=== PATIENT | male | born 1995 | race Caucasian/White ===

== ENCOUNTER 2023-08-14 11:51 | Inpatient (IN) | payer MEDICAID ==
[~2023-08-14] VITALS: Ht 177.8 cm; Wt 82.7 kg
[2023-08-14 12:10] VITALS: BP_SYST 146; PULSE 105; RESP 20; TEMP 98.3; O2SAT 98
[2023-08-14 12:53] LABS: BASOPHILS % (AUTO) 0.4 % (0.0-2.0); EOSINOPHILS # (AUTO) 0.2 K/uL (0.0-0.4); EOSINOPHILS % (AUTO) 2.3 % (0.0-4.0); HEMATOCRIT 42.4 % (36-54); HEMOGLOBIN 13.6 g/dL (14.0-18.0); MEAN CORPUSCULAR HEMOGLOBIN 28 pg (27-31); MEAN CORPUSCULAR HGB CONC 32 % (32-36); MEAN CORPUSCULAR VOLUME 88 fL (79.0-98.0); MONOCYTES # (AUTO) 0.4 K/uL (0.0-1.0); MONOCYTES % (AUTO) 5.3 % (1.7-9.3); NEUTROPHILS # (AUTO) 4.7 K/uL (1.8-7.7); PLATELET COUNT (AUTO) 279 K/uL (130-430); RED BLOOD CELL COUNT(AUTO) 4.81 MIL/uL (4.2-6.2); WHITE BLOOD COUNT (AUTO) 7.2 K/uL (4.8-10.8)
[2023-08-14 13:43] LABS: CALCIUM 9.3 mg/dL (8.4-11.0); CREATININE 1.07 mg/dL (0.55-1.30); POTASSIUM 3.5 mmol/L (3.5-5.1)
[2023-08-14] MEDS ORDERED: NALOXONE HCL 0.4 MG/ML AMP (NARCAN) IVP ONE (14:30)
[2023-08-14] MEDS ORDERED: ALBUTEROL SULFATE 0.083% 2.5 MG/3 ML VIAL.NEB INH PRN (17:15)
[2023-08-14] MEDS ORDERED: LORazepam 2 MG/ML VIAL IVP PRN (17:15)
[2023-08-14] MEDS ORDERED: IPRATROPIUM BROM 0.5 MG/2.5 ML VIAL.NEB (ATROVENT) INH PRN (17:15)
[2023-08-14] MEDS ORDERED: ACETAMINOPHEN 325 MG TABLET PO PRN ×2 (17:15→17:30)
[2023-08-14] MEDS ORDERED: ONDANSETRON HCL 4 MG/2 ML VIAL IVP PRN (17:15)
[2023-08-14 17:25] VITALS: PULSE 78; O2SAT 100
[2023-08-14 17:31] LABS: BARBITURATE, URINE NEGATIVE (NEG <=200); BENZODIAZEPINE, URINE NEGATIVE (NEG <=150); CANNABINOID, URINE POSITIVE (NEG <=50); COCAINE, URINE NEGATIVE (NEG <=150); METHAMPHETAMINES SCREEN,URINE POSITIVE (NEG <=500); OPIATE, URINE NEGATIVE (NEG <=100); PHENCYCLIDINE SCREEN,URINE NEGATIVE (NEG <=25); URINE AMPHETAMINE POSITIVE (NEG <=500); URINE METHADONE NEGATIVE (NEG <=200); URINE OXYCODONE SCREEN NEGATIVE (NEG <=100); URINE PROPOXYPHENE SCREEN NEGATIVE (NEG <=300)
[2023-08-14 17:32] LABS: UR TRICYCLIC ANTIDEPRESSANTS NEGATIVE (NEG <=300)
[2023-08-14] MEDS ORDERED: NORMAL SALINE 5 ML DISP.SYRIN IVF SCH (22:00)
[2023-08-14 23:34] VITALS: BP_SYST 122; PULSE 90; RESP 14; TEMP 98.1
[2023-08-14 23:45] VITALS: O2SAT 98
[2023-08-15 02:00] VITALS: BP_SYST 107; PULSE 74; RESP 16; TEMP 98.4; O2SAT 100
[2023-08-15 05:48] LABS: BASOPHILS % (AUTO) 0.3 % (0.0-2.0); EOSINOPHILS # (AUTO) 0.2 K/uL (0.0-0.4); EOSINOPHILS % (AUTO) 2.4 % (0.0-4.0); HEMATOCRIT 39.6 % (36-54); HEMOGLOBIN 12.8 g/dL (14.0-18.0); LYMPHOCYTES # (AUTO) 2.7 K/uL (1.0-5.5); LYMPHOCYTES % (AUTO) 27.4 % (20.5-51.5); MEAN CORPUSCULAR HEMOGLOBIN 29 pg (27-31); MEAN CORPUSCULAR HGB CONC 32 % (32-36); MEAN CORPUSCULAR VOLUME 88 fL (79.0-98.0); MONOCYTES # (AUTO) 0.5 K/uL (0.0-1.0); MONOCYTES % (AUTO) 5.4 % (1.7-9.3); NEUTROPHILS # (AUTO) 6.5 K/uL (1.8-7.7); NEUTROPHILS % (AUTO) 64.5 % (40.0-70.0); PLATELET COUNT (AUTO) 265 K/uL (130-430); RED CELL DISTRIBUTION WIDTH 14.7 % (9.0-15.0)
[2023-08-15 06:22] LABS: CALCIUM 8.9 mg/dL (8.4-11.0); CREATININE 0.87 mg/dL (0.55-1.30)
[2023-08-15 07:45] VITALS: BP_SYST 109; PULSE 57; RESP 18; TEMP 98.2; O2SAT 99
[2023-08-15 08:00] VITALS: O2SAT 99
[2023-08-15 14:00] VITALS: BP_SYST 114; PULSE 59; RESP 20; TEMP 98.6; O2SAT 99
== END 2023-08-15 14:45 | disposition home or self-care (01) | DRG 812 ==
LOC: SED 11:51 → SMU 15:56
PROVIDERS: ADMIT Preventive Medicine Preventive Medicine/Occupational Environmental Medicine; ATTEND Preventive Medicine Preventive Medicine/Occupational Environmental Medicine
DX: T40.411A Poisoning by fentanyl or fentanyl analogs, accidental (unintentional), initial encounter (principal); J96.00 Acute respiratory failure, unspecified whether with hypoxia or hypercapnia; I46.9 Cardiac arrest, cause unspecified; G92.8 Other toxic encephalopathy; F15.10 Other stimulant abuse, uncomplicated; R65.10 Systemic inflammatory response syndrome (SIRS) of non-infectious origin without acute organ dysfunction; R00.0 Tachycardia, unspecified; R73.9 Hyperglycemia, unspecified; Y92.89 Other specified places as the place of occurrence of the external cause
CPT/HCPCS: 36415; 70450-TC; 71250-TC; 76376; 80048; 80307; 85025; 93005; 96374; 99285; G0482; J2310

== ENCOUNTER 2023-11-06 20:02 | Emergency (ER) | payer MEDICAID ==
[~2023-11-06] VITALS: Ht 175.3 cm; Wt 72.6 kg
[2023-11-06 20:04] VITALS: BP_SYST 122; PULSE 67; RESP 18; TEMP 97.8; O2SAT 98
[2023-11-06] MEDS ORDERED: CEPH250C PO (20:18)
[2023-11-06 20:30] VITALS: BP_SYST 122; PULSE 67; RESP 18; TEMP 97.8; O2SAT 98
== END 2023-11-06 20:30 | disposition home or self-care (01) ==
LOC: SED 20:02
DX: L98.499 Non-pressure chronic ulcer of skin of other sites with unspecified severity (principal); Z79.899 Other long term (current) drug therapy
CPT/HCPCS: 99283

== ENCOUNTER 2024-07-30 23:54 | Emergency (ER) | payer MEDICAID ==
[~2024-07-30] VITALS: Ht 177.8 cm; Wt 81.6 kg
[~2024-07-30 23:54] MED LIST: CEPH250C PO
[2024-07-31 00:02] VITALS: BP_SYST 101; PULSE 104; RESP 10; TEMP 97.5; O2SAT 100
[2024-07-31 06:50] VITALS: BP_SYST 104; PULSE 84; RESP 20; TEMP 98; O2SAT 98
== END 2024-07-31 06:50 | disposition home or self-care (01) ==
LOC: SED 23:54
DX: T40.601A Poisoning by unspecified narcotics, accidental (unintentional), initial encounter (principal); Y92.89 Other specified places as the place of occurrence of the external cause
CPT/HCPCS: 99285

== ENCOUNTER 2024-08-01 09:50 | Inpatient (IN) | payer MEDICAID ==
[~2024-08-01] VITALS: Ht 177.8 cm; Wt 79.4 kg
[2024-08-01 09:50] VITALS: BP_SYST 139; PULSE 68; RESP 18; TEMP 98.8; O2SAT 99
[2024-08-01 10:55] LABS: BASOPHILS # (AUTO) 0.2 K/uL (0.0-0.2); HEMATOCRIT 40.7 % (36-54); HEMOGLOBIN 13.7 g/dL (14.0-18.0); LYMPHOCYTES # (AUTO) 0.5 K/uL (1.0-5.5); MEAN CORPUSCULAR HEMOGLOBIN 29 pg (27-31); MEAN CORPUSCULAR HGB CONC 34 % (32-36); MEAN CORPUSCULAR VOLUME 86 fL (79.0-98.0); MONOCYTES # (AUTO) 1.4 K/uL (0.0-1.0); NEUTROPHILS # (AUTO) 21.3 K/uL (1.8-7.7); PLATELET COUNT (AUTO) 192 K/uL (130-430); RED BLOOD CELL COUNT(AUTO) 4.74 MIL/uL (4.2-6.2); RED CELL DISTRIBUTION WIDTH 14.1 % (9.0-15.0); WHITE BLOOD COUNT (AUTO) 23.4 K/uL (4.8-10.8)
[2024-08-01] MEDS: KETOROLAC TROMETHAMINE 30 MG VIAL IM ONE (10:57)
[2024-08-01] MEDS: KETOROLAC TROMETHAMINE 30 MG VIAL IVP ONE (10:57)
[2024-08-01 11:28] LABS: CALCIUM 7.7 mg/dL (8.4-11.0); CREATININE 5.38 mg/dL (0.55-1.30); POTASSIUM 3.5 mmol/L (3.5-5.1)
[2024-08-01 11:29] LABS: ALBUMIN 3.8 g/dL (3.4-4.8); BILIRUBIN,DIRECT 0.5 mg/dL (0.0-0.3); TOTAL BILIRUBIN 1.1 mg/dL (0.0-1.0); TOTAL PROTEIN, SERUM 7.3 g/dL (6.4-8.3)
[2024-08-01] MEDS: NACL 0.9% 1,000 ML IV ONE (12:12)
[2024-08-01] MEDS ORDERED: PIPERACILLIN/TAZOBACTAM 3.375 GM/VIAL (ZOSYN) IV ONE ×2 (14:14)
[2024-08-01] MEDS: PIPERACILLIN/TAZO 3.375 GM in NS 50 ML IV ONE (14:20)
[2024-08-01] MEDS: D5NS 1,000 ML IV SCH (15:50)
[2024-08-01 17:30] VITALS: BP_SYST 137; PULSE 71; RESP 18; TEMP 98.2; O2SAT 100
[2024-08-01 20:00] VITALS: BP_SYST 120; PULSE 70; RESP 17; TEMP 97.8; O2SAT 97
[2024-08-02] VITALS: BP_SYST 124; PULSE 74; RESP 18; TEMP 98; O2SAT 98
[2024-08-02 08:00] VITALS: BP_SYST 133; PULSE 73; RESP 18; TEMP 98.2; O2SAT 99
[2024-08-02] MEDS: cefTRIAXone 1 GM in D5W 50 ML IV SCH (08:29)
[2024-08-02 08:35] VITALS: O2SAT 99
[2024-08-02] MEDS ORDERED: LORazepam 2 MG/ML VIAL IVP PRN (09:45)
[2024-08-02] MEDS ORDERED: NALOXONE HCL 0.4 MG/ML AMP (NARCAN) IVP PRN ×2 (09:45)
[2024-08-02] MEDS: LINEZOLID 300 ML IV SCH (09:48)
[2024-08-02] MEDS ORDERED: ACETAMINOPHEN 325 MG TABLET PO PRN (10:30)
[2024-08-02 10:37] LABS: BASOPHILS % (AUTO) 0.1 % (0.0-2.0); EOSINOPHILS % (AUTO) 0.1 % (0.0-4.0); HEMATOCRIT 34.7 % (36-54); HEMOGLOBIN 11.9 g/dL (14.0-18.0); LYMPHOCYTES # (AUTO) 0.9 K/uL (1.0-5.5); LYMPHOCYTES % (AUTO) 5.3 % (20.5-51.5); MEAN CORPUSCULAR HEMOGLOBIN 29 pg (27-31); MEAN CORPUSCULAR HGB CONC 34 % (32-36); MEAN CORPUSCULAR VOLUME 85 fL (79.0-98.0); MONOCYTES # (AUTO) 1.2 K/uL (0.0-1.0); MONOCYTES % (AUTO) 7.5 % (1.7-9.3); NEUTROPHILS # (AUTO) 14.2 K/uL (1.8-7.7); PLATELET COUNT (AUTO) 190 K/uL (130-430); RED BLOOD CELL COUNT(AUTO) 4.11 MIL/uL (4.2-6.2); RED CELL DISTRIBUTION WIDTH 13.6 % (9.0-15.0); WHITE BLOOD COUNT (AUTO) 16.3 K/uL (4.8-10.8)
[2024-08-02 10:50] LABS: CKMB RELATIVE INDEX 30.9 (0.0-2.9)
[2024-08-02] MEDS: ONDANSETRON HCL 4 MG/2 ML VIAL IVP PRN (10:57)
[2024-08-02] MEDS: HYDROcodone/ACETAMIN 5-325 MG TAB (NORCO/ VICODIN) PO PRN (10:58)
[2024-08-02 11:29] LABS: ALBUMIN 2.9 g/dL (3.4-4.8); CALCIUM 7.3 mg/dL (8.4-11.0); CREATININE 7.26 mg/dL (0.55-1.30); POTASSIUM 3.4 mmol/L (3.5-5.1); TOTAL BILIRUBIN 0.7 mg/dL (0.0-1.0); TOTAL PROTEIN, SERUM 6.1 g/dL (6.4-8.3)
[2024-08-02 12:00] VITALS: BP_SYST 133; PULSE 76; RESP 18; TEMP 98.6; O2SAT 99
[2024-08-02 16:00] VITALS: BP_SYST 136; PULSE 78; RESP 18; TEMP 98.3; O2SAT 98
[2024-08-02 17:54] LABS: BLOOD, URINE 3+ (NEGATIVE); GLUCOSE,URINE TRACE (NEGATIVE); KETONES,URINE NEGATIVE (NEGATIVE); LEUKOCYTE ESTERASE ,URINE NEGATIVE (NEGATIVE); NITRITE, URINE NEGATIVE (NEGATIVE); PROTEIN URINE 3+ (NEGATIVE); UROBILINOGEN,URINE 0.2 (0.2-1.0)
[2024-08-02] MEDS: ACETAMINOPHEN 325 MG TABLET PO PRN (18:16)
[2024-08-02 18:19] LABS: CLARITY/URINE HAZY (CLEAR); COLOR,URINE BROWN (YELLOW)
[2024-08-02 18:20] LABS: BILIRUBIN,URINE 1+ (NEGATIVE)
[2024-08-02 18:21] LABS: BACTERIA,URINE FEW /HPF (None Seen); RBC,URINE 0-3 /HPF (0-3); WBC,URINE 0-3 /HPF (0-3)
[2024-08-02 18:22] LABS: CALCIUM 7.3 mg/dL (8.4-11.0)
[2024-08-02 18:22] LABS: MUCUS,URINE None Seen /LPF (None Seen); URINE AMORPHOUS URATE 2+ /HPF (None Seen)
[2024-08-02 18:36] LABS: CREATININE 7.72 mg/dL (0.55-1.30)
[2024-08-02 20:00] VITALS: O2SAT 98
[2024-08-02 20:03] LABS: BARBITURATE, URINE NEGATIVE (NEG <=200); BENZODIAZEPINE, URINE NEGATIVE (NEG <=150); CANNABINOID, URINE NEGATIVE (NEG <=50); COCAINE, URINE NEGATIVE (NEG <=150); METHAMPHETAMINES SCREEN,URINE POSITIVE (NEG <=500); OPIATE, URINE NEGATIVE (NEG <=100); PHENCYCLIDINE SCREEN,URINE NEGATIVE (NEG <=25); UR TRICYCLIC ANTIDEPRESSANTS NEGATIVE (NEG <=300); URINE AMPHETAMINE POSITIVE (NEG <=500); URINE METHADONE NEGATIVE (NEG <=200); URINE OXYCODONE SCREEN NEGATIVE (NEG <=100)
[2024-08-02 22:15] LABS: CHLORIDE,URINE RANDOM 46 mmol/L (55-125)
[2024-08-03 07:12] LABS: BASOPHILS % (AUTO) 0.1 % (0.0-2.0); EOSINOPHILS % (AUTO) 0.2 % (0.0-4.0); HEMATOCRIT 32.5 % (36-54); HEMOGLOBIN 11.4 g/dL (14.0-18.0); LYMPHOCYTES # (AUTO) 0.8 K/uL (1.0-5.5); MEAN CORPUSCULAR HEMOGLOBIN 30 pg (27-31); MEAN CORPUSCULAR HGB CONC 35 % (32-36); MEAN CORPUSCULAR VOLUME 85 fL (79.0-98.0); MONOCYTES % (AUTO) 7.4 % (1.7-9.3); NEUTROPHILS # (AUTO) 11.5 K/uL (1.8-7.7); NEUTROPHILS % (AUTO) 86.3 % (40.0-70.0); PLATELET COUNT (AUTO) 189 K/uL (130-430); RED BLOOD CELL COUNT(AUTO) 3.85 MIL/uL (4.2-6.2); RED CELL DISTRIBUTION WIDTH 13.7 % (9.0-15.0); WHITE BLOOD COUNT (AUTO) 13.3 K/uL (4.8-10.8)
[2024-08-03 07:56] LABS: TOTAL IRON BIND. CAPACITY 225 ug/dL (250-450)
[2024-08-03 07:59] LABS: ALBUMIN 2.6 g/dL (3.4-4.8); CALCIUM 7.4 mg/dL (8.4-11.0); PHOSPHORUS 7.8 mg/dL (2.7-4.5); TOTAL BILIRUBIN 0.7 mg/dL (0.0-1.0); TOTAL PROTEIN, SERUM 5.6 g/dL (6.4-8.3)
[2024-08-03 08:00] VITALS: BP_SYST 125; PULSE 68; RESP 18; TEMP 97.8; O2SAT 99
[2024-08-03 08:05] LABS: POTASSIUM 2.7 mmol/L (3.5-5.1)
[2024-08-03 08:06] LABS: CREATININE 8.8 mg/dL (0.55-1.30)
[2024-08-03 10:04] LABS: PROTHROMBIN TIME 10.4 SECS (9.5-12.5)
[2024-08-03 10:12] LABS: TOTAL IRON BIND. CAPACITY 227 ug/dL (250-450)
[2024-08-03 12:00] VITALS: BP_SYST 127; PULSE 63; RESP 18; TEMP 98.7; O2SAT 97
[2024-08-03] MEDS: SODIUM BICARBONATE 8.4% JECT 150 MEQ in D5W 1,000 ML IV SCH (12:06)
[2024-08-03 16:00] VITALS: BP_SYST 132; PULSE 65; RESP 18; TEMP 98.4; O2SAT 95
[2024-08-03 20:07] VITALS: BP_SYST 132; PULSE 67; RESP 16; TEMP 98.4; O2SAT 100
[2024-08-04 00:32] VITALS: BP_SYST 133; PULSE 65; RESP 12; TEMP 98.1; O2SAT 98
[2024-08-04 07:36] LABS: BASOPHILS % (AUTO) 0.2 % (0.0-2.0); EOSINOPHILS % (AUTO) 0.4 % (0.0-4.0); HEMATOCRIT 36.4 % (36-54); HEMOGLOBIN 12.5 g/dL (14.0-18.0); LYMPHOCYTES # (AUTO) 1.1 K/uL (1.0-5.5); LYMPHOCYTES % (AUTO) 9.3 % (20.5-51.5); MEAN CORPUSCULAR HEMOGLOBIN 29 pg (27-31); MEAN CORPUSCULAR HGB CONC 34 % (32-36); MEAN CORPUSCULAR VOLUME 85 fL (79.0-98.0); MONOCYTES % (AUTO) 8.4 % (1.7-9.3); NEUTROPHILS # (AUTO) 9.4 K/uL (1.8-7.7); NEUTROPHILS % (AUTO) 81.7 % (40.0-70.0); PLATELET COUNT (AUTO) 211 K/uL (130-430); RED CELL DISTRIBUTION WIDTH 13.9 % (9.0-15.0); WHITE BLOOD COUNT (AUTO) 11.5 K/uL (4.8-10.8)
[2024-08-04 07:43] LABS: ERYTHROCYTE SEDIMENTATION RATE 29 MM/HR (0-15)
[2024-08-04 07:55] LABS: ALBUMIN 2.8 g/dL (3.4-4.8); BILIRUBIN,DIRECT 0.3 mg/dL (0.0-0.3); CALCIUM 7.6 mg/dL (8.4-11.0); PHOSPHORUS 7.3 mg/dL (2.7-4.5); TOTAL BILIRUBIN 0.8 mg/dL (0.0-1.0)
[2024-08-04 07:59] LABS: CREATININE 10.61 mg/dL (0.55-1.30); POTASSIUM 2.7 mmol/L (3.5-5.1)
[2024-08-04 08:00] VITALS: BP_SYST 128; PULSE 68; RESP 18; TEMP 97.9; O2SAT 100
[2024-08-04 10:00] VITALS: BP_SYST 128; PULSE 68; RESP 18; TEMP 97.9; O2SAT 100
[2024-08-04 10:06] LABS: ALPHA-1-ANTITRYPSIN, S 177 mg/dL (95-164)
[2024-08-04] MEDS: HEPARIN SODIUM, PORCINE 10,000 UNITS/ 10 ML VIAL MC ONE (11:05)
[2024-08-04 12:00] VITALS: BP_SYST 130; PULSE 66; RESP 17; TEMP 98.2; O2SAT 98
[2024-08-04] MEDS: POTASSIUM CHLORIDE 40 MEQ, LIDOCAINE JECT 2% PF 100 MG 75 MG in NS 250 ML IV ONE (12:41)
[2024-08-04 16:31] VITALS: BP_SYST 132; PULSE 64; RESP 16; TEMP 98.4; O2SAT 99
[2024-08-04 20:00] VITALS: BP_SYST 135; PULSE 68; RESP 18; TEMP 97.5; O2SAT 95
[2024-08-04] MEDS: RIFAXIMIN 550 MG TABLET PO SCH (22:17)
[2024-08-05 01:00] VITALS: BP_SYST 129; PULSE 75; RESP 18; TEMP 97.2; O2SAT 96
[2024-08-05] MEDS: HYDROcodone/ACETAMIN 10-325 MG TAB PO PRN (01:42)
[2024-08-05 07:36] LABS: BASOPHILS % (AUTO) 0.2 % (0.0-2.0); EOSINOPHILS % (AUTO) 0.3 % (0.0-4.0); HEMATOCRIT 32.5 % (36-54); HEMOGLOBIN 11.2 g/dL (14.0-18.0); LYMPHOCYTES # (AUTO) 1.2 K/uL (1.0-5.5); LYMPHOCYTES % (AUTO) 10.5 % (20.5-51.5); MEAN CORPUSCULAR HEMOGLOBIN 29 pg (27-31); MEAN CORPUSCULAR HGB CONC 35 % (32-36); MEAN CORPUSCULAR VOLUME 84 fL (79.0-98.0); MONOCYTES # (AUTO) 0.9 K/uL (0.0-1.0); MONOCYTES % (AUTO) 8.1 % (1.7-9.3); NEUTROPHILS # (AUTO) 9.3 K/uL (1.8-7.7); NEUTROPHILS % (AUTO) 80.9 % (40.0-70.0); PLATELET COUNT (AUTO) 212 K/uL (130-430); RED BLOOD CELL COUNT(AUTO) 3.88 MIL/uL (4.2-6.2); RED CELL DISTRIBUTION WIDTH 13.9 % (9.0-15.0); WHITE BLOOD COUNT (AUTO) 11.6 K/uL (4.8-10.8)
[2024-08-05 07:44] LABS: ERYTHROCYTE SEDIMENTATION RATE 18 MM/HR (0-15)
[2024-08-05 08:00] VITALS: BP_SYST 134; PULSE 61; RESP 18; TEMP 98; O2SAT 99
[2024-08-05 08:18] LABS: ALBUMIN 2.4 g/dL (3.4-4.8); CALCIUM 7.8 mg/dL (8.4-11.0); PHOSPHORUS 5.1 mg/dL (2.7-4.5); POTASSIUM 3.2 mmol/L (3.5-5.1); TOTAL BILIRUBIN 0.8 mg/dL (0.0-1.0); TOTAL PROTEIN, SERUM 5.3 g/dL (6.4-8.3)
[2024-08-05] MEDS: HEPARIN SODIUM,PORCINE 5,000 UNITS/ML VIAL ONE (08:30)
[2024-08-05] MEDS: HEPARIN SODIUM, PORCINE 10,000 UNITS/ 10 ML VIAL MC ONE (08:30)
[2024-08-05 08:31] LABS: CREATININE 9.75 mg/dL (0.55-1.30)
[2024-08-05 08:51] LABS: CKMB RELATIVE INDEX 0.2 (0.0-2.9)
[2024-08-05] MEDS: LACTULOSE 20 GM/30 ML UDC PO SCH (09:00)
[2024-08-05 12:38] VITALS: BP_SYST 132; PULSE 72; RESP 17; TEMP 97.3; O2SAT 97
[2024-08-05 16:52] VITALS: BP_SYST 130; PULSE 68; RESP 18; TEMP 97.9; O2SAT 98
[2024-08-05] MEDS: HEPARIN SODIUM,PORCINE 5,000 UNITS/ML VIAL MC ONE (17:40)
[2024-08-05 20:00] VITALS: BP_SYST 134; PULSE 72; RESP 20; TEMP 98.7; O2SAT 98
[2024-08-06 00:10] VITALS: BP_SYST 135; PULSE 68; RESP 17; TEMP 98.2; O2SAT 99
[2024-08-06 04:06] LABS: HEPATITIS A AB, IgM Negative (Negative); HEPATITIS B CORE AB, IgM Negative (Negative); HEPATITIS B SURFACE AG Negative (Negative); HEPATITIS C VIRUS AB Non Reactive (Non Reactive)
[2024-08-06 07:41] LABS: BASOPHILS % (AUTO) 0.3 % (0.0-2.0); EOSINOPHILS # (AUTO) 0.2 K/uL (0.0-0.4); EOSINOPHILS % (AUTO) 1.6 % (0.0-4.0); HEMATOCRIT 33.5 % (36-54); HEMOGLOBIN 11.5 g/dL (14.0-18.0); LYMPHOCYTES # (AUTO) 1.7 K/uL (1.0-5.5); LYMPHOCYTES % (AUTO) 15.3 % (20.5-51.5); MEAN CORPUSCULAR HEMOGLOBIN 29 pg (27-31); MEAN CORPUSCULAR HGB CONC 34 % (32-36); MEAN CORPUSCULAR VOLUME 85 fL (79.0-98.0); MONOCYTES # (AUTO) 1.1 K/uL (0.0-1.0); MONOCYTES % (AUTO) 10.1 % (1.7-9.3); NEUTROPHILS # (AUTO) 8.2 K/uL (1.8-7.7); NEUTROPHILS % (AUTO) 72.7 % (40.0-70.0); PLATELET COUNT (AUTO) 199 K/uL (130-430); RED BLOOD CELL COUNT(AUTO) 3.95 MIL/uL (4.2-6.2); RED CELL DISTRIBUTION WIDTH 14.2 % (9.0-15.0); WHITE BLOOD COUNT (AUTO) 11.3 K/uL (4.8-10.8)
[2024-08-06 07:45] LABS: ERYTHROCYTE SEDIMENTATION RATE 7 MM/HR (0-15)
[2024-08-06 08:05] VITALS: BP_SYST 124; PULSE 67; RESP 16; TEMP 98.4; O2SAT 99
[2024-08-06 08:14] LABS: ALBUMIN 2.4 g/dL (3.4-4.8); CALCIUM 8.1 mg/dL (8.4-11.0); PHOSPHORUS 4.8 mg/dL (2.7-4.5); POTASSIUM 3.6 mmol/L (3.5-5.1); TOTAL BILIRUBIN 0.9 mg/dL (0.0-1.0); TOTAL PROTEIN, SERUM 5.2 g/dL (6.4-8.3)
[2024-08-06 08:17] LABS: CREATININE 8.44 mg/dL (0.55-1.30)
[2024-08-06 09:06] LABS: HEPATITIS A AB, IgM Negative (Negative); HEPATITIS B CORE AB, IgM Negative (Negative); HEPATITIS B SURFACE AG Negative (Negative); HEPATITIS C VIRUS AB Non Reactive (Non Reactive)
[2024-08-06 09:16] LABS: CKMB RELATIVE INDEX 0.2 (0.0-2.9)
[2024-08-06 09:35] VITALS: O2SAT 99
[2024-08-06 11:09] LABS: LIVER-KIDNEY MICROSOMAL AB 0.2 Units (0.0-20.0)
[2024-08-06 12:28] LABS: PROTHROMBIN TIME 10.7 SECS (9.5-12.5)
[2024-08-06 12:32] VITALS: BP_SYST 123; PULSE 68; RESP 16; TEMP 98; O2SAT 99
[2024-08-06 13:08] LABS: ANTI NUCLEAR AB WITH REFLEX Negative (Negative)
[2024-08-06 16:07] LABS: ANTI-SMOOTH MUSCLE AB 2 Units (0-19)
[2024-08-06 16:30] VITALS: BP_SYST 121; PULSE 70; RESP 16; TEMP 97.6; O2SAT 98
[2024-08-06 20:00] VITALS: BP_SYST 122; PULSE 74; RESP 16; TEMP 97; O2SAT 98
[2024-08-07 00:48] VITALS: BP_SYST 139; PULSE 84; RESP 18; TEMP 97.8; O2SAT 99
[2024-08-07 07:09] LABS: BASOPHILS % (AUTO) 0.2 % (0.0-2.0); EOSINOPHILS # (AUTO) 0.2 K/uL (0.0-0.4); EOSINOPHILS % (AUTO) 1.9 % (0.0-4.0); HEMOGLOBIN 11.2 g/dL (14.0-18.0); LYMPHOCYTES # (AUTO) 1.3 K/uL (1.0-5.5); LYMPHOCYTES % (AUTO) 11.2 % (20.5-51.5); MEAN CORPUSCULAR HEMOGLOBIN 29 pg (27-31); MEAN CORPUSCULAR HGB CONC 34 % (32-36); MEAN CORPUSCULAR VOLUME 86 fL (79.0-98.0); MONOCYTES # (AUTO) 1.1 K/uL (0.0-1.0); MONOCYTES % (AUTO) 9.5 % (1.7-9.3); NEUTROPHILS # (AUTO) 8.8 K/uL (1.8-7.7); NEUTROPHILS % (AUTO) 77.2 % (40.0-70.0); PLATELET COUNT (AUTO) 203 K/uL (130-430); RED BLOOD CELL COUNT(AUTO) 3.86 MIL/uL (4.2-6.2); RED CELL DISTRIBUTION WIDTH 14.1 % (9.0-15.0); WHITE BLOOD COUNT (AUTO) 11.4 K/uL (4.8-10.8)
[2024-08-07 07:21] LABS: ERYTHROCYTE SEDIMENTATION RATE 9 MM/HR (0-15)
[2024-08-07 07:45] VITALS: BP_SYST 122; PULSE 72; RESP 14; TEMP 97.3; O2SAT 98
[2024-08-07 08:37] LABS: ALBUMIN 2.5 g/dL (3.4-4.8); CALCIUM 8.3 mg/dL (8.4-11.0); PHOSPHORUS 4.7 mg/dL (2.7-4.5); POTASSIUM 3.5 mmol/L (3.5-5.1); TOTAL BILIRUBIN 0.7 mg/dL (0.0-1.0); TOTAL PROTEIN, SERUM 5.2 g/dL (6.4-8.3)
[2024-08-07 08:46] LABS: CREATININE 10.44 mg/dL (0.55-1.30)
[2024-08-07 12:08] VITALS: BP_SYST 142; PULSE 65; RESP 19; TEMP 97.8; O2SAT 100
[2024-08-07] MEDS: HEPARIN SODIUM,PORCINE 5,000 UNITS/ML VIAL ONE (12:41)
[2024-08-07 13:08] LABS: QUANTIFERON TB GOLD Negative (Negative)
[2024-08-07 17:07] VITALS: BP_SYST 150; PULSE 124; RESP 22; TEMP 98.9
[2024-08-07 20:10] VITALS: BP_SYST 132; PULSE 84; RESP 18; TEMP 97; O2SAT 96
[2024-08-08] VITALS (7 sets, daily range): BP systolic 115–133; PULSE 66–83; RESP 16–21; TEMP 97.7–99; O2SAT 95–100
[2024-08-08 05:36] LABS: ERYTHROCYTE SEDIMENTATION RATE 6 MM/HR (0-15)
[2024-08-08 05:44] LABS: BASOPHILS % (AUTO) 0.3 % (0.0-2.0); EOSINOPHILS % (AUTO) 0.4 % (0.0-4.0); HEMATOCRIT 29.1 % (36-54); LYMPHOCYTES # (AUTO) 1.1 K/uL (1.0-5.5); MEAN CORPUSCULAR HEMOGLOBIN 29 pg (27-31); MEAN CORPUSCULAR HGB CONC 34 % (32-36); MEAN CORPUSCULAR VOLUME 86 fL (79.0-98.0); MONOCYTES # (AUTO) 1.1 K/uL (0.0-1.0); MONOCYTES % (AUTO) 9.3 % (1.7-9.3); NEUTROPHILS # (AUTO) 9.1 K/uL (1.8-7.7); PLATELET COUNT (AUTO) 205 K/uL (130-430); RED BLOOD CELL COUNT(AUTO) 3.39 MIL/uL (4.2-6.2); RED CELL DISTRIBUTION WIDTH 14.6 % (9.0-15.0); WHITE BLOOD COUNT (AUTO) 11.4 K/uL (4.8-10.8)
[2024-08-08 07:03] LABS: CALCIUM 8.5 mg/dL (8.4-11.0); PHOSPHORUS 5.4 mg/dL (2.7-4.5); POTASSIUM 4.2 mmol/L (3.5-5.1)
[2024-08-08 07:51] LABS: CREATININE 8.28 mg/dL (0.55-1.30)
[2024-08-08 08:43] LABS: CKMB RELATIVE INDEX 0.5 (0.0-2.9)
[2024-08-08] MEDS ORDERED: iohexoL 240 mgI/mL, 50 ML INFUS..BTL IV ONE (15:39)
[2024-08-08] MEDS: MIDAZOLAM HCL 2 MG/2 ML VIAL (VERSED) ONE ×2 (16:10→21:17)
[2024-08-08] MEDS: fentaNYL CITRATE/PF 100 MCG/2 ML AMP ONE (21:17)
[2024-08-09] VITALS: BP_SYST 132; PULSE 71; RESP 18; TEMP 98.6; O2SAT 99
[2024-08-09 07:07] LABS: BASOPHILS % (AUTO) 0.3 % (0.0-2.0); EOSINOPHILS # (AUTO) 0.3 K/uL (0.0-0.4); EOSINOPHILS % (AUTO) 2.1 % (0.0-4.0); HEMATOCRIT 27.6 % (36-54); HEMOGLOBIN 9.3 g/dL (14.0-18.0); LYMPHOCYTES # (AUTO) 1.8 K/uL (1.0-5.5); LYMPHOCYTES % (AUTO) 14.5 % (20.5-51.5); MEAN CORPUSCULAR HEMOGLOBIN 29 pg (27-31); MEAN CORPUSCULAR HGB CONC 34 % (32-36); MEAN CORPUSCULAR VOLUME 86 fL (79.0-98.0); MONOCYTES % (AUTO) 8.3 % (1.7-9.3); NEUTROPHILS # (AUTO) 9.1 K/uL (1.8-7.7); NEUTROPHILS % (AUTO) 74.8 % (40.0-70.0); PLATELET COUNT (AUTO) 215 K/uL (130-430); RED BLOOD CELL COUNT(AUTO) 3.21 MIL/uL (4.2-6.2); RED CELL DISTRIBUTION WIDTH 14.3 % (9.0-15.0); WHITE BLOOD COUNT (AUTO) 12.1 K/uL (4.8-10.8)
[2024-08-09 07:17] LABS: ERYTHROCYTE SEDIMENTATION RATE 4 MM/HR (0-15)
[2024-08-09 07:43] LABS: ALBUMIN 2.8 g/dL (3.4-4.8); CALCIUM 8.5 mg/dL (8.4-11.0); PHOSPHORUS 6.1 mg/dL (2.7-4.5); POTASSIUM 4.1 mmol/L (3.5-5.1); TOTAL BILIRUBIN 0.5 mg/dL (0.0-1.0); TOTAL PROTEIN, SERUM 5.4 g/dL (6.4-8.3)
[2024-08-09 08:00] LABS: CREATININE 9.5 mg/dL (0.55-1.30)
[2024-08-09 08:17] VITALS: BP_SYST 123; PULSE 78; RESP 15; TEMP 98.4; O2SAT 95
[2024-08-09 08:25] LABS: CKMB RELATIVE INDEX 1.5 (0.0-2.9)
[2024-08-09 10:54] VITALS: O2SAT 98
[2024-08-09 11:00] VITALS: BP_SYST 122; RESP 17; TEMP 98.6; O2SAT 95
[2024-08-09] MEDS: HEPARIN SODIUM, PORCINE 10,000 UNITS/ 10 ML VIAL MC ONE (11:15)
[2024-08-09 16:15] VITALS: BP_SYST 126; PULSE 75; RESP 17; TEMP 99; O2SAT 100
[2024-08-09 20:30] VITALS: BP_SYST 124; PULSE 74; RESP 16; TEMP 98.1; O2SAT 97
[2024-08-10 00:30] VITALS: BP_SYST 128; PULSE 71; RESP 17; TEMP 98.1; O2SAT 98
[2024-08-10 07:19] LABS: BASOPHILS % (AUTO) 0.4 % (0.0-2.0); EOSINOPHILS # (AUTO) 0.3 K/uL (0.0-0.4); EOSINOPHILS % (AUTO) 2.3 % (0.0-4.0); HEMATOCRIT 26.6 % (36-54); LYMPHOCYTES # (AUTO) 1.4 K/uL (1.0-5.5); LYMPHOCYTES % (AUTO) 12.4 % (20.5-51.5); MEAN CORPUSCULAR HEMOGLOBIN 29 pg (27-31); MEAN CORPUSCULAR HGB CONC 34 % (32-36); MEAN CORPUSCULAR VOLUME 87 fL (79.0-98.0); MONOCYTES # (AUTO) 0.9 K/uL (0.0-1.0); MONOCYTES % (AUTO) 7.6 % (1.7-9.3); NEUTROPHILS # (AUTO) 8.9 K/uL (1.8-7.7); NEUTROPHILS % (AUTO) 77.3 % (40.0-70.0); PLATELET COUNT (AUTO) 248 K/uL (130-430); RED BLOOD CELL COUNT(AUTO) 3.08 MIL/uL (4.2-6.2); RED CELL DISTRIBUTION WIDTH 14.3 % (9.0-15.0); WHITE BLOOD COUNT (AUTO) 11.5 K/uL (4.8-10.8)
[2024-08-10 07:30] LABS: POTASSIUM 4.2 mmol/L (3.5-5.1)
[2024-08-10 07:31] LABS: CALCIUM 8.4 mg/dL (8.4-11.0); CREATININE 6.54 mg/dL (0.55-1.30); PHOSPHORUS 4.8 mg/dL (2.7-4.5)
[2024-08-10 07:35] LABS: ERYTHROCYTE SEDIMENTATION RATE 8 MM/HR (0-15)
[2024-08-10 08:00] VITALS: BP_SYST 128; PULSE 73; RESP 16; TEMP 98.2; O2SAT 98
[2024-08-10 08:55] VITALS: O2SAT 98
[2024-08-10 11:02] VITALS: BP_SYST 118; PULSE 70; RESP 14; TEMP 98.2; O2SAT 100
[2024-08-10 16:30] VITALS: BP_SYST 120; PULSE 70; RESP 14; TEMP 98.2; O2SAT 100
[2024-08-10 20:00] VITALS: BP_SYST 123; PULSE 75; RESP 18; TEMP 97.4; O2SAT 99
[2024-08-11 02:00] VITALS: RESP 18; TEMP 97.1; O2SAT 99
[2024-08-11 08:00] VITALS: BP_SYST 132; PULSE 70; RESP 18; TEMP 98; O2SAT 98
[2024-08-11 08:50] VITALS: O2SAT 98
[2024-08-11 12:46] LABS: CALCIUM 8.6 mg/dL (8.4-11.0); CREATININE 6.77 mg/dL (0.55-1.30); POTASSIUM 4.1 mmol/L (3.5-5.1)
[2024-08-11 17:26] VITALS: BP_SYST 131; PULSE 73; RESP 18; TEMP 98.1; O2SAT 99
[2024-08-11 20:00] VITALS: BP_SYST 131; PULSE 72; RESP 18; TEMP 97.9; O2SAT 99
[2024-08-12 06:53] LABS: BASOPHILS # (AUTO) 0.1 K/uL (0.0-0.2); BASOPHILS % (AUTO) 0.5 % (0.0-2.0); EOSINOPHILS # (AUTO) 0.3 K/uL (0.0-0.4); EOSINOPHILS % (AUTO) 2.4 % (0.0-4.0); HEMATOCRIT 26.8 % (36-54); LYMPHOCYTES # (AUTO) 1.7 K/uL (1.0-5.5); LYMPHOCYTES % (AUTO) 12.8 % (20.5-51.5); MEAN CORPUSCULAR HEMOGLOBIN 29 pg (27-31); MEAN CORPUSCULAR HGB CONC 34 % (32-36); MEAN CORPUSCULAR VOLUME 87 fL (79.0-98.0); MONOCYTES # (AUTO) 0.9 K/uL (0.0-1.0); MONOCYTES % (AUTO) 6.6 % (1.7-9.3); NEUTROPHILS % (AUTO) 77.7 % (40.0-70.0); PLATELET COUNT (AUTO) 331 K/uL (130-430); RED BLOOD CELL COUNT(AUTO) 3.08 MIL/uL (4.2-6.2); RED CELL DISTRIBUTION WIDTH 14.7 % (9.0-15.0); WHITE BLOOD COUNT (AUTO) 12.9 K/uL (4.8-10.8)
[2024-08-12 07:12] LABS: ALBUMIN 2.7 g/dL (3.4-4.8); CALCIUM 8.4 mg/dL (8.4-11.0); CREATININE 6.02 mg/dL (0.55-1.30); PHOSPHORUS 5.6 mg/dL (2.7-4.5); TOTAL BILIRUBIN 0.3 mg/dL (0.0-1.0); TOTAL PROTEIN, SERUM 5.3 g/dL (6.4-8.3)
[2024-08-12 07:45] LABS: CKMB RELATIVE INDEX 7.4 (0.0-2.9)
[2024-08-12 08:00] VITALS: O2SAT 99
[2024-08-12] MEDS: HYDROmorphone 1 MG/ML INJ. CARTRIDGE ONE (08:00)
[2024-08-12 11:10] VITALS: BP_SYST 126; PULSE 76; RESP 16; TEMP 99.4; O2SAT 96
[2024-08-12 15:08] VITALS: BP_SYST 120; PULSE 83; RESP 16; TEMP 99.1; O2SAT 99
[2024-08-12 20:00] VITALS: BP_SYST 136; PULSE 91; RESP 18; TEMP 99.1; O2SAT 98
[2024-08-13] VITALS (7 sets, daily range): BP systolic 120–132; PULSE 69–95; RESP 16–18; TEMP 97.8–98.9; O2SAT 96–100
[2024-08-13 07:10] LABS: BASOPHILS % (AUTO) 0.4 % (0.0-2.0); EOSINOPHILS # (AUTO) 0.3 K/uL (0.0-0.4); EOSINOPHILS % (AUTO) 2.7 % (0.0-4.0); HEMATOCRIT 27.4 % (36-54); HEMOGLOBIN 9.2 g/dL (14.0-18.0); LYMPHOCYTES # (AUTO) 1.9 K/uL (1.0-5.5); LYMPHOCYTES % (AUTO) 16.4 % (20.5-51.5); MEAN CORPUSCULAR HEMOGLOBIN 29 pg (27-31); MEAN CORPUSCULAR HGB CONC 34 % (32-36); MEAN CORPUSCULAR VOLUME 88 fL (79.0-98.0); MONOCYTES # (AUTO) 0.7 K/uL (0.0-1.0); MONOCYTES % (AUTO) 5.9 % (1.7-9.3); NEUTROPHILS # (AUTO) 8.9 K/uL (1.8-7.7); NEUTROPHILS % (AUTO) 74.6 % (40.0-70.0); PLATELET COUNT (AUTO) 349 K/uL (130-430); RED BLOOD CELL COUNT(AUTO) 3.12 MIL/uL (4.2-6.2); RED CELL DISTRIBUTION WIDTH 14.8 % (9.0-15.0); WHITE BLOOD COUNT (AUTO) 11.9 K/uL (4.8-10.8)
[2024-08-13 07:31] LABS: CALCIUM 8.5 mg/dL (8.4-11.0); CREATININE 3.64 mg/dL (0.55-1.30); PHOSPHORUS 4.8 mg/dL (2.7-4.5); POTASSIUM 4.5 mmol/L (3.5-5.1)
[2024-08-13] MEDS ORDERED: NALOXONE HCL 0.4 MG/ML AMP (NARCAN) IVP PRN ×2 (09:30)
[2024-08-13] MEDS ORDERED: HYDROcodone/ACETAMIN 5-325 MG TAB (NORCO/ VICODIN) PO PRN (09:30)
[2024-08-13] MEDS ORDERED: HYDROcodone/ACETAMIN 10-325 MG TAB PO PRN (09:30)
[2024-08-14 00:26] VITALS: BP_SYST 147; PULSE 91; RESP 20; TEMP 98.8; O2SAT 100
[2024-08-14 07:10] LABS: BASOPHILS # (AUTO) 0.1 K/uL (0.0-0.2); BASOPHILS % (AUTO) 0.7 % (0.0-2.0); EOSINOPHILS # (AUTO) 0.4 K/uL (0.0-0.4); EOSINOPHILS % (AUTO) 2.9 % (0.0-4.0); HEMATOCRIT 27.6 % (36-54); HEMOGLOBIN 9.1 g/dL (14.0-18.0); LYMPHOCYTES # (AUTO) 2.4 K/uL (1.0-5.5); LYMPHOCYTES % (AUTO) 18.5 % (20.5-51.5); MEAN CORPUSCULAR HEMOGLOBIN 29 pg (27-31); MEAN CORPUSCULAR HGB CONC 33 % (32-36); MEAN CORPUSCULAR VOLUME 89 fL (79.0-98.0); MONOCYTES # (AUTO) 0.8 K/uL (0.0-1.0); MONOCYTES % (AUTO) 6.2 % (1.7-9.3); NEUTROPHILS # (AUTO) 9.4 K/uL (1.8-7.7); NEUTROPHILS % (AUTO) 71.7 % (40.0-70.0); PLATELET COUNT (AUTO) 372 K/uL (130-430); RED BLOOD CELL COUNT(AUTO) 3.12 MIL/uL (4.2-6.2); RED CELL DISTRIBUTION WIDTH 14.9 % (9.0-15.0); WHITE BLOOD COUNT (AUTO) 13.1 K/uL (4.8-10.8)
[2024-08-14 07:37] LABS: ALBUMIN 2.9 g/dL (3.4-4.8); CALCIUM 8.6 mg/dL (8.4-11.0); CREATININE 3.27 mg/dL (0.55-1.30); PHOSPHORUS 5.7 mg/dL (2.7-4.5); POTASSIUM 4.8 mmol/L (3.5-5.1); TOTAL BILIRUBIN 0.3 mg/dL (0.0-1.0); TOTAL PROTEIN, SERUM 5.7 g/dL (6.4-8.3)
[2024-08-14 07:45] VITALS: O2SAT 96
[2024-08-14 08:43] VITALS: BP_SYST 129; PULSE 72; RESP 12; TEMP 98.3; O2SAT 96
[2024-08-14 11:04] VITALS: BP_SYST 131; PULSE 76; RESP 16; TEMP 97.5; O2SAT 96
[2024-08-14] MEDS: HEPARIN SODIUM,PORCINE 5,000 UNITS/ML VIAL IV ONE (13:27)
[2024-08-14 15:21] VITALS: BP_SYST 126; PULSE 72; RESP 16; TEMP 97.7; O2SAT 96
[2024-08-14 20:00] VITALS: BP_SYST 116; PULSE 78; RESP 18; TEMP 99; O2SAT 99
[2024-08-15 00:35] VITALS: BP_SYST 121; PULSE 78; RESP 18; TEMP 98.5; O2SAT 98
[2024-08-15 06:44] LABS: BASOPHILS # (AUTO) 0.1 K/uL (0.0-0.2); BASOPHILS % (AUTO) 0.6 % (0.0-2.0); EOSINOPHILS # (AUTO) 0.5 K/uL (0.0-0.4); EOSINOPHILS % (AUTO) 3.9 % (0.0-4.0); HEMATOCRIT 27.9 % (36-54); HEMOGLOBIN 9.3 g/dL (14.0-18.0); LYMPHOCYTES # (AUTO) 2.1 K/uL (1.0-5.5); LYMPHOCYTES % (AUTO) 17.9 % (20.5-51.5); MEAN CORPUSCULAR HEMOGLOBIN 29 pg (27-31); MEAN CORPUSCULAR HGB CONC 33 % (32-36); MEAN CORPUSCULAR VOLUME 88 fL (79.0-98.0); MONOCYTES # (AUTO) 0.7 K/uL (0.0-1.0); NEUTROPHILS # (AUTO) 8.4 K/uL (1.8-7.7); NEUTROPHILS % (AUTO) 71.6 % (40.0-70.0); PLATELET COUNT (AUTO) 397 K/uL (130-430); RED BLOOD CELL COUNT(AUTO) 3.18 MIL/uL (4.2-6.2); RED CELL DISTRIBUTION WIDTH 14.6 % (9.0-15.0); WHITE BLOOD COUNT (AUTO) 11.7 K/uL (4.8-10.8)
[2024-08-15 07:21] LABS: CALCIUM 9.1 mg/dL (8.4-11.0); CREATININE 2.69 mg/dL (0.55-1.30); PHOSPHORUS 5.9 mg/dL (2.7-4.5); POTASSIUM 4.3 mmol/L (3.5-5.1)
[2024-08-15 08:03] VITALS: BP_SYST 128; PULSE 65; RESP 16; TEMP 98.7; O2SAT 99
[2024-08-15 09:04] VITALS: O2SAT 99
[2024-08-15 09:16] VITALS: BP_SYST 128; PULSE 65; RESP 16; TEMP 98.7; O2SAT 99
[2024-08-15 12:29] VITALS: BP_SYST 120; PULSE 65; RESP 14; TEMP 98.4; O2SAT 98
== END 2024-08-15 14:40 | disposition home or self-care (01) | DRG 351 ==
LOC: SED 09:50 → STU 15:03 → SMU 08-02 15:00
PROVIDERS: ADMIT Preventive Medicine Preventive Medicine/Occupational Environmental Medicine; ATTEND Preventive Medicine Preventive Medicine/Occupational Environmental Medicine
PROC: 02HV33Z Insertion of Infusion Device into Superior Vena Cava, Percutaneous Approach (ICD-10-PCS; 2024-08-04)
PROC: B548ZZA Ultrasonography of Superior Vena Cava, Guidance (ICD-10-PCS; 2024-08-04)
PROC: 5A1D70Z Performance of Urinary Filtration, Intermittent, Less than 6 Hours Per Day (ICD-10-PCS; 2024-08-04)
PROC: 5A1D70Z Performance of Urinary Filtration, Intermittent, Less than 6 Hours Per Day (ICD-10-PCS; 2024-08-05)
PROC: 5A1D70Z Performance of Urinary Filtration, Intermittent, Less than 6 Hours Per Day (ICD-10-PCS; 2024-08-07)
PROC: 02HV33Z Insertion of Infusion Device into Superior Vena Cava, Percutaneous Approach (ICD-10-PCS; 2024-08-08)
PROC: B5181ZA Fluoroscopy of Superior Vena Cava using Low Osmolar Contrast, Guidance (ICD-10-PCS; 2024-08-08)
PROC: 02PYX3Z Removal of Infusion Device from Great Vessel, External Approach (ICD-10-PCS; 2024-08-08)
PROC: 0JH63XZ Insertion of Tunneled Vascular Access Device into Chest Subcutaneous Tissue and Fascia, Percutaneous Approach (ICD-10-PCS; principal; 2024-08-08 21:00)
PROC: 5A1D70Z Performance of Urinary Filtration, Intermittent, Less than 6 Hours Per Day (ICD-10-PCS; 2024-08-09)
PROC: 5A1D70Z Performance of Urinary Filtration, Intermittent, Less than 6 Hours Per Day (ICD-10-PCS; 2024-08-12)
PROC: 5A1D70Z Performance of Urinary Filtration, Intermittent, Less than 6 Hours Per Day (ICD-10-PCS; 2024-08-14)
DX: T79.6XXA Traumatic ischemia of muscle, initial encounter (principal); N17.0 Acute kidney failure with tubular necrosis; G93.41 Metabolic encephalopathy; E44.0 Moderate protein-calorie malnutrition; E87.1 Hypo-osmolality and hyponatremia; E83.51 Hypocalcemia; E83.39 Other disorders of phosphorus metabolism; D63.8 Anemia in other chronic diseases classified elsewhere; E87.20 Acidosis, unspecified; K76.0 Fatty (change of) liver, not elsewhere classified; E83.42 Hypomagnesemia; E87.6 Hypokalemia; F15.10 Other stimulant abuse, uncomplicated; R74.01 Elevation of levels of liver transaminase levels; Z68.25 Body mass index [BMI] 25.0-25.9, adult; Z79.899 Other long term (current) drug therapy; Z88.8 Allergy status to other drugs, medicaments and biological substances; Z99.2 Dependence on renal dialysis; X58.XXXA Exposure to other specified factors, initial encounter; Y92.9 Unspecified place or not applicable
CPT/HCPCS: 36415; 70450-TC; 71045; 71250-TC; 74181; 76000; 76700; 78226; 80048; 80053; 80074; 80076; 80307; 81000; 81001; 81015; 82103; 82140; 82390; 82435; 82550; 82553; 82570; 83516; 83540; 83550; 83605; 83690; 83735; 83930; 83935; 83970; 84100; 84302; 85025; 85610; 85651; 85730; 86038; 86376; 86480; 86886; 86900; 86901; 87040; 87081; 87086; 90935; 90937; 93306; 93970; 97110-GP; 97116-GP; 97530-GP; 99285; A9537; C1751; G0378; J0696; J1171; J1644; J1885; J2020; J2250; J2405; J2543; J3010; J3480; J7030; J7042; J7050; J7060; Q9966; Q9967

== ENCOUNTER 2024-08-29 09:17 | Emergency (ER) | payer MEDICAID ==
[~2024-08-29] VITALS: Ht 165.1 cm; Wt 74.8 kg
[2024-08-29 09:29] VITALS: BP_SYST 126; PULSE 70; RESP 20; TEMP 98.3; O2SAT 98
[2024-08-29 09:47] LABS: BASOPHILS # (AUTO) 0.1 K/uL (0.0-0.2); EOSINOPHILS # (AUTO) 0.2 K/uL (0.0-0.4); EOSINOPHILS % (AUTO) 1.9 % (0.0-4.0); HEMATOCRIT 37.9 % (36-54); HEMOGLOBIN 12.2 g/dL (14.0-18.0); LYMPHOCYTES % (AUTO) 33.8 % (20.5-51.5); MEAN CORPUSCULAR HEMOGLOBIN 29 pg (27-31); MEAN CORPUSCULAR HGB CONC 32 % (32-36); MEAN CORPUSCULAR VOLUME 91 fL (79.0-98.0); MONOCYTES # (AUTO) 0.6 K/uL (0.0-1.0); MONOCYTES % (AUTO) 6.5 % (1.7-9.3); NEUTROPHILS % (AUTO) 56.8 % (40.0-70.0); PLATELET COUNT (AUTO) 369 K/uL (130-430); RED BLOOD CELL COUNT(AUTO) 4.16 MIL/uL (4.2-6.2); RED CELL DISTRIBUTION WIDTH 16.5 % (9.0-15.0); WHITE BLOOD COUNT (AUTO) 8.7 K/uL (4.8-10.8)
[2024-08-29] MEDS: ASPIRIN 81 MG TAB.CHEW PO ONE (09:57)
[2024-08-29 10:15] VITALS: BP_SYST 133; PULSE 72; RESP 12; TEMP 97.9; O2SAT 99
[2024-08-29 10:16] LABS: ALANINE AMINOTRANSFERASE 40 U/L (12-78); ALBUMIN 4.2 g/dL (3.4-4.8); ANION GAP 8 (5-15); ASPARTATE AMINOTRANSFERASE 24 U/L (10-37); BILIRUBIN,DIRECT 0.1 mg/dL (0.0-0.3); CALCIUM 9.3 mg/dL (8.4-11.0); CARBON DIOXIDE 30 mmol/L (23-29); CHLORIDE 105 mmol/L (98-107); CREATINE KINASE, TOTAL 77 U/L (39-308); CREATININE 1.07 mg/dL (0.55-1.30); GFR AFRICAN AMERICAN 107 mL/min (>90); GLUCOSE 86 mg/dL (74-106); POTASSIUM 4.6 mmol/L (3.5-5.1); SODIUM SERUM 143 mmol/L (136-145); TOTAL BILIRUBIN 0.5 mg/dL (0.0-1.0); TOTAL PROTEIN, SERUM 7.8 g/dL (6.4-8.3); UREA NITROGEN, BLOOD 16 mg/dL (8-21)
[2024-08-29 10:21] LABS: GFR NON AFRICAN-AMERICAN 88 mL/min (>90)
[2024-08-29 10:35] LABS: PROTHROMBIN TIME 10.5 SECS (9.5-12.5)
== END 2024-08-29 09:20 | disposition short-term general hospital (02) ==
LOC: SED 09:17
DX: I21.9 Acute myocardial infarction, unspecified (principal); R07.89 Other chest pain; Z99.2 Dependence on renal dialysis
CPT/HCPCS: 36415; 71045; 80048; 80076; 82550; 84484; 85025; 85610; 85730; 93005; 99285